=== PATIENT | male | born 2000 | race Caucasian/White ===

== ENCOUNTER 2022-02-04 10:52 | Emergency (ER) | payer MEDICAID ==
[~2022-02-04] VITALS: Ht 177.8 cm; Wt 120.2 kg
[2022-02-04 11:00] VITALS: BP_SYST 133
--- NOTE | 2022-02-04 11:00 | NUR ---
Patient triaged and placed in waiting room. VSS and patient appears in no acute distress at this time. Accompanied by SELF, awaiting available bed, and MD notified of need for MSE.
--- NOTE | 2022-02-04 11:45 | NUR ---
TAKEN TO RADIOLOGY VIA WHEELCHAIR
--- NOTE | 2022-02-04 13:56 | NUR ---
DR NELSON OUT TO TRIAGE ROOM TO EVALUATE
[2022-02-04] MEDS ORDERED: HYDROcodone/ACETAMIN 10-325 MG TAB PO ONE (14:15)
[2022-02-04] MEDS ORDERED: KETOROLAC TROMETHAMINE 60 MG/2 ML VIAL IM ONE (14:15)
[2022-02-04] MEDS ORDERED: HYDR-3917 PO (15:09)
[2022-02-04] MEDS ORDERED: IBUP-1971 PO (15:09)
--- NOTE | 2022-02-04 15:25 | NUR ---
KNEE IMMOBILIZER AND CRUTCHES GIVEN BY EMT
--- NOTE | 2022-02-04 15:43 | NUR ---
Patient given written and verbal discharge instructions and verbalizes understanding. ER MD discussed with patient the results and treatment provided. Patient in stable condition. ID arm band removed. Rx of NORCO, IBUPROFEN given. Patient educated on pain management and to follow up with PMD. Pain Scale 0/10. Opportunity for questions provided and answered. Medication side effect fact sheet provided.
== END 2022-02-04 15:43 | disposition home or self-care (01) ==
LOC: SED 10:52
DX: S83.91XA Sprain of unspecified site of right knee, initial encounter (principal); Z79.899 Other long term (current) drug therapy; X50.1XXA Overexertion from prolonged static or awkward postures, initial encounter; Y93.89 Activity, other specified; Y92.89 Other specified places as the place of occurrence of the external cause; Y99.8 Other external cause status
CPT/HCPCS: 99283; 29505; 73564; 96372; J1885